=== PATIENT | male | born 1990 | race Two or more races ===

== ENCOUNTER 2022-05-24 09:21 | Emergency (ER) | payer BC ==
[2022-05-24] MEDS ORDERED: Sodium Chloride 0.9% 10 ML Syringe FLUSH PRN (11:04)
[2022-05-24] MEDS ORDERED: HYDROmorphone 0.5 MG/0.5 ML Syringe IVPUSH ONE (11:07)
[2022-05-24] MEDS ORDERED: Sodium Chloride 0.9% 1,000 ML IV SCH (11:15)
== END 2022-05-24 13:30 | disposition home or self-care (01) ==
LOC: JD.ED 09:21
DX: M54.50 Low back pain, unspecified (principal); K80.20 Calculus of gallbladder without cholecystitis without obstruction
CPT/HCPCS: 36415; 74176; 80053; 85025; 96361; 96374; 96375; 99284; J1170; J3360; J3490; J7030